=== PATIENT | female | born 1935 | race Caucasian/White ===

== ENCOUNTER 2018-04-19 10:53 | Day surgery (SDC) | payer MEDICARE, OTHER ==
[2018-04-19] MEDS ORDERED: PROPOFOL 20 ML (12:31)
[2018-04-19] MEDS ORDERED: FENTAnyl 50 MCG/ML VIAL (12:31)
== END 2018-04-19 15:09 | disposition home or self-care (01) ==
LOC: GIL 10:53
DX: K29.50 Unspecified chronic gastritis without bleeding (principal); K21.9 Gastro-esophageal reflux disease without esophagitis; I10 Essential (primary) hypertension; E78.5 Hyperlipidemia, unspecified; Z79.82 Long term (current) use of aspirin; J45.909 Unspecified asthma, uncomplicated
CPT/HCPCS: 43239; 88305; 88312

== ENCOUNTER 2018-06-05 11:03 | Observation (INO) | payer MEDICARE, MEDICAID, OTHER ==
[2018-06-05] MEDS: morphine 2 MG INJ IV (12:28)
[2018-06-05] MEDS: ONDANSETRON 4 MG INJ IV (12:28)
[2018-06-05 12:35] LABS: ADD MAN DIFF? NO
[2018-06-05] MEDS: ACETAMINOPHEN 325 MG TAB PO ×2 (12:36→20:19)
[2018-06-05 12:38] LABS: WHITE BLOOD COUNT 5.8 10^3/ul (4.8-10.8)
[2018-06-05 12:38] LABS: BASOPHILS % 0.5 % (0.0-2.0); EOSINOPHILS # 0.1 10^3/ul (0.0-0.5); EOSINOPHILS % 1.9 % (0.0-7.0); HEMATOCRIT 40.1 % (37.0-47.0); HEMOGLOBIN 13.6 g/dl (12.0-16.0); LYMPHOCYTES # 1.2 10^3/ul (0.8-2.9); LYMPHOCYTES % 21.5 % (15.0-51.0); MEAN CORPUSCULAR HEMOGLOBIN 32.1 pg (29.0-33.0); MEAN CORPUSCULAR HGB CONC 33.9 g/dl (32.0-37.0); MEAN CORPUSCULAR VOLUME 94.6 fl (82.0-101.0); MEAN PLATELET VOLUME 9.5 fl (7.4-10.4); MONOCYTE # 0.6 10^3/ul (0.3-0.9); MONOCYTES % 9.5 % (0.0-11.0); NEUTROPHIL # 3.8 10^3/ul (1.6-7.5); NEUTROPHILS % 65.4 % (39.0-77.0); PLATELET COUNT 195 10^3/UL (140-415); RED BLOOD COUNT 4.24 10^6/ul (4.20-5.40); RED CELL DISTRIBUTION WIDTH 13.4 % (11.5-14.5)
[2018-06-05 13:03] LABS: ALANINE AMINOTRANSFERASE 27 IU/L (13-69); ALBUMIN 4.3 g/dl (3.3-4.9); ALBUMIN/GLOBULIN RATIO 1.95; ALKALINE PHOSPHATASE 39 IU/L (42-121); ANION GAP 12 (5-13); ASPARTATE AMINO TRANSFERASE 32 IU/L (15-46); BILIRUBIN,INDIRECT 0.8 mg/dl (0-1.1); BILIRUBIN,TOTAL 0.8 mg/dl (0.2-1.3); BLOOD UREA NITROGEN 19 mg/dl (7-20); CALCIUM 9.2 mg/dl (8.4-10.2); CARBON DIOXIDE 24 mmol/L (21-31); CHLORIDE 100 mmol/L (97-110); CREATININE 0.66 mg/dl (0.44-1.00); GLUCOSE 137 mg/dl (70-220); POTASSIUM 4.4 mmol/L (3.5-5.1); SODIUM 136 mmol/L (135-144); TOTAL PROTEIN 6.5 g/dl (6.1-8.1)
[2018-06-05 13:13] LABS: B-TYPE NATRIURETIC PEPTIDE 193 PG/ML (0-450); TROPONIN-I < 0.012 ng/ml (0.000-0.120)
[2018-06-05 13:30] LABS: INR 0.93; PARTIAL THROMBOPLASTIN TIME 27.7 Sec (23.0-35.0); PROTIME 12.6 Sec (11.9-14.9)
[2018-06-05] MEDS ORDERED: ACETAMINOPHEN 325 MG TAB PO (15:30)
[2018-06-05] MEDS ORDERED: ONDANSETRON 4 MG INJ IV ×2 (15:30→18:30)
[2018-06-05] MEDS: SOD CHLORIDE 0.45% 1,000 ML IV (18:15)
[2018-06-05] MEDS ORDERED: NA PHOSPHATE/BIPHOS 133 ML ENEMA PR (18:30)
[2018-06-05] MEDS ORDERED: HYDROCODONE/APAP (5/325) TAB PO (18:30)
[2018-06-05] MEDS ORDERED: ALBUTEROL/IPRATROPIUM (NEB) 3 ML AMP HHN (18:30)
[2018-06-05] MEDS ORDERED: hydrALAzine 20 MG INJ IV (18:30)
[2018-06-05] MEDS ORDERED: DOCUSATE SODIUM 100 MG CAP PO (18:30)
[2018-06-05] MEDS ORDERED: morphine 2 MG INJ IV (18:30)
[2018-06-05] MEDS ORDERED: NACL 0.9% 3 ML SYG IV (18:30)
[2018-06-05] MEDS ORDERED: NITROGLYCERIN (SL) 0.4 MG TAB SL (18:30)
[2018-06-05] MEDS ORDERED: HYDROmorphONE 0.5 MG/0.5 ML SYG IV (18:30)
[2018-06-05] MEDS ORDERED: LORAZEPAM 2 MG INJ IV (18:30)
[2018-06-05] MEDS ORDERED: MAGNESIUM HYDROXIDE 30ML CUP PO (18:30)
[2018-06-05 19:50] LABS: INR 0.91; PARTIAL THROMBOPLASTIN TIME 27.2 Sec (23.0-35.0); PROTIME 12.3 Sec (11.9-14.9)
[2018-06-05 19:56] LABS: FREE T4 (FREE THYROXINE) 1.46 ng/dl (0.85-1.93)
[2018-06-05] MEDS: ATORVASTATIN 40 MG TAB PO (20:19)
[2018-06-05] MEDS: RANITIDINE 150 MG TAB PO (20:19)
[2018-06-06] MEDS: ACETAMINOPHEN 325 MG TAB PO (04:30)
[2018-06-06 07:11] LABS: ADD MAN DIFF? NO
[2018-06-06 07:17] LABS: WHITE BLOOD COUNT 5.4 10^3/ul (4.8-10.8)
[2018-06-06 07:17] LABS: BASOPHILS % 0.4 % (0.0-2.0); EOSINOPHILS # 0.1 10^3/ul (0.0-0.5); EOSINOPHILS % 1.8 % (0.0-7.0); HEMATOCRIT 38.8 % (37.0-47.0); HEMOGLOBIN 13.5 g/dl (12.0-16.0); LYMPHOCYTES # 1.1 10^3/ul (0.8-2.9); LYMPHOCYTES % 20.4 % (15.0-51.0); MEAN CORPUSCULAR HEMOGLOBIN 32.3 pg (29.0-33.0); MEAN CORPUSCULAR HGB CONC 34.8 g/dl (32.0-37.0); MEAN CORPUSCULAR VOLUME 92.8 fl (82.0-101.0); MEAN PLATELET VOLUME 9.2 fl (7.4-10.4); MONOCYTE # 0.7 10^3/ul (0.3-0.9); MONOCYTES % 12.2 % (0.0-11.0); NEUTROPHIL # 3.5 10^3/ul (1.6-7.5); NEUTROPHILS % 64.1 % (39.0-77.0); PLATELET COUNT 187 10^3/UL (140-415); RED BLOOD COUNT 4.18 10^6/ul (4.20-5.40); RED CELL DISTRIBUTION WIDTH 13.4 % (11.5-14.5)
[2018-06-06 07:24] LABS: HEMOGLOBIN A1C 5.6 % (0-5.9)
[2018-06-06] MEDS: SOD CHLORIDE 0.45% 1,000 ML IV (07:35)
[2018-06-06 07:39] LABS: ANION GAP 12 (5-13); BLOOD UREA NITROGEN 14 mg/dl (7-20); CALCIUM 8.9 mg/dl (8.4-10.2); CARBON DIOXIDE 28 mmol/L (21-31); CHLORIDE 98 mmol/L (97-110); CHOL/HDL RATIO 2.9 RATIO; CHOLESTEROL 126 mg/dl (100-200); CREATININE 0.65 mg/dl (0.44-1.00); GLUCOSE 107 mg/dl (70-220); HDL CHOLESTEROL 43 mg/dl (33-92); LDL CHOLESTEROL,CALCULATED 57 mg/dl; PHOSPHORUS 4.3 mg/dl (2.5-4.9); POTASSIUM 3.9 mmol/L (3.5-5.1); SODIUM 138 mmol/L (135-144); TRIGLYCERIDES 130 mg/dl (0-149)
[2018-06-06] MEDS: PROPRANOLOL 10 MG TAB PO (08:07)
[2018-06-06] MEDS: LOSARTAN 50 MG TAB PO ×2 (08:07→11:07)
[2018-06-06] MEDS: RANITIDINE 150 MG TAB PO (08:07)
[2018-06-07] MEDS ORDERED: LOSARTAN 50 MG TAB PO (09:00)
== END 2018-06-06 13:38 | disposition home or self-care (01) ==
LOC: E/R 11:03 → TEL 15:04
DX: S22.42XA Multiple fractures of ribs, left side, initial encounter for closed fracture (principal); S00.03XA Contusion of scalp, initial encounter; S13.9XXA Sprain of joints and ligaments of unspecified parts of neck, initial encounter; I10 Essential (primary) hypertension; E78.00 Pure hypercholesterolemia, unspecified; J45.909 Unspecified asthma, uncomplicated; Z79.82 Long term (current) use of aspirin; W19.XXXA Unspecified fall, initial encounter
CPT/HCPCS: 70450; 70486; 71250; 72125; 73562; 80048; 80053; 80061; 83036; 83735; 83880; 84100; 84439; 84443; 84484; 85025; 85610; 85730; 92610; 93005; 97161; 99285-25; G0378

== ENCOUNTER 2018-09-15 10:13 | Emergency (ER) | payer MEDICARE, OTHER, MEDICAID | END 2018-09-15 11:28 | disposition home or self-care (01) | LOC: FTE 10:13 | DX: B02.9 Zoster without complications (principal); J45.909 Unspecified asthma, uncomplicated; I10 Essential (primary) hypertension; Z79.82 Long term (current) use of aspirin | CPT/HCPCS: 99283 ==